=== PATIENT | male | born 1970 | race Caucasian/White ===

== ENCOUNTER 2020-05-12 13:12 | Outpatient (CLI) | payer OTHER, SELFPAY ==
--- NOTE | ~2020-05-12 | US_ITS ---
EXAMINATION: US venous doppler [facility] EXAM DATE: 05/12/2020 13:55 INDICATION: Left calf pain. TECHNIQUE: Multiple grayscale, color flow and Doppler images of the left lower extremity deep venous system were obtained and reviewed. There is no prior study for comparison. FINDINGS: The left common femoral, femoral and profunda veins demonstrate normal color flow, respirat ory variation, augmentation and compressibility. Compressibility, color flow confirmed within the le ft popliteal, posterior tibial, peroneal, and greater saphenous veins. IMPRESSION: 1. No left lower extremity deep venous thrombosis. Reviewed, dictated and finalized at location A.
== END 2020-05-12 13:13 | disposition home or self-care (01) ==
PROVIDERS: PCP Internal Medicine; Visit Provider Internal Medicine
DX: R60.0 Localized edema (principal)
CPT/HCPCS: 93971

== ENCOUNTER 2022-04-10 21:10 | Emergency (ER) | payer OTHER, SELFPAY ==
--- NOTE | ~2022-04-10 | XR_ITS ---
EXAMINATION: XR abdomen/kub 1V DATE: 04/10/2022 23:47 INDICATION: Kidney stone. TECHNIQUE: A supine view of the abdomen on 3 radiographs was obtained. COMPARISON: CT abdomen and pelvis 04/10/2022 FINDINGS: There are no dilated loops of bowel. There are phleboliths in the pelvis. There is no visib le urolithiasis. IMPRESSION: 1. No visible urolithiasis. Reviewed, dictated and finalized at location A. IMPRESSION: 1. No visible urolithiasis.
--- NOTE | ~2022-04-10 | CT_ITS ---
EXAMINATION: CT abdomen pelvis wo con DATE: 04/10/2022 22:25 INDICATION: Right lower quadrant abdominal pain. Right flank pain. TECHNIQUE: Computed tomography (CT) of the abdomen and pelvis was performed without intravenous contr ast. Automated exposure control and iterative reconstruction technique were employed. The dose-length product was 1425.31 mGy-cm. COMPARISON: CT abdomen and pelvis 10/07/2019 FINDINGS: The visualized portions of the lung bases demonstrate mild atelectasis. No pleural effusion . The heart size is normal. No pericardial effusion. The liver, gallbladder, spleen, pancreas, and ad renal glands are normal. There is mild right hydronephrosis and hydroureter. There is a 3 mm stone at right ureterovesicular junction. There is a 7 mm hemorrhagic cyst in left kidney. There is diverticu losis of the colon without evidence of diverticulitis. There are no dilated loops of bowel. The appen edi is normal. There are no pathologically enlarged lymph nodes. There is no free intraperitoneal flu id. 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 There is 4 mm anterolisthesis of L3 on L4. There is severe lumbar spondylosis. IMPRESSION: 1. 3 mm stone at right ureterovesicular junction with mild right hydronephrosis and hydroureter. Reviewed, dictated and finalized at location A.
[2022-04-10 21:12] VITALS: BP 159/110; PULSE 84; RESP 16; TEMP 36.1; O2SAT 98
--- NOTE | 2022-04-10 21:26 | ED.ABDPAIN ---
HPI - Abdominal Pain General Chief Complaint: Abdominal Pain <QUINTON Duff Last Filed: 04/11/22 01:40> Stated Complaint: RLQ pain <QUINTON Duff Last Filed: 04/11/22 01:40> Time Seen by Provider: 04/10/22 21:25 <QUINTON Duff Last Filed: 04/11/22 01:40> Source: patient <QUINTON Duff Last Filed: 04/11/22 01:40> Mode of arrival: ambulatory <QUINTON Duff Last Filed: 04/11/22 01:40> Limitations: no limitations <QUINTON Duff Last Filed: 04/11/22 01:40> History of Present Illness HPI narrative: Patient is a 52-year-old male who presents the ED with report of right lower quadrant abdominal pain. Patient states the pain is present in his right lower quadrant but somewhat radiates around to his right lower back. The pain began 3 hours ago and has been constant and progressively worsening since then. He did take Tylenol 2 hours ago with no relief of pain. He discussed this with his primary care doctor, who was concerned for appendicitis and referred him to the ED. Patient also has a history of kidney stones, but states this pain does not feel similar. Patient states he has felt somewhat queasy with the pain, but denies vomiting. No fevers or chills, no urinary frequency, dysuria, hematuria. No diarrhea or constipation. No rectal bleeding. <QUINTON Duff Last Filed: 04/11/22 01:40> Related Data Home Medications: Home Medications Medication Instructions Recorded Confirmed aspirin 81 mg tablet,delayed 81 mg PO DAILY 09/17/19 02/28/22 release (Adult Low Dose Aspirin) lactobacillus combination no.8 3 3,000 mmu cells PO DAILY 09/17/19 02/28/22 billion cell capsule (Adult Probiotic) loratadine 10 mg tablet (Claritin) 10 mg PO DAILY 09/17/19 02/28/22 mecobalamin (vitamin B12) 1,000 1,000 mcg PO DAILY 09/17/19 02/28/22 mcg disintegrating tablet,sublingual ogtukszp-sxdparrl-vtntv acid 400 1 tablet PO DAILY 09/17/19 02/28/22 mcg-vit K 20 mcg-lycop 300 mcg tablet (Men's Multivitamin) omega-3 fatty acids 1,000 mg 2,000 mg PO BID 09/17/19 02/28/22 capsule (Fish Oil Concentrate) lancets (Microlet Lancet) #50 ea 12/02/19 02/28/22 pen needle, diabetic 31 gauge x #1,200 ea 12/02/19 02/28/2203/07 cholecalciferol (vitamin D3) 25 25 mcg PO DAILY 10/05/20 02/28/22 mcg (1,000 unit) tablet <Cara Andrade PA-C - Last Filed: 04/11/22 01:40> Allergies/Adverse Reactions: Allergies Allergy/AdvReac Type Severity Reaction Status Date / Time No Known Allergies Allergy Mild Verified 04/10/22 21:16 <Cara Andrade PA-C - Last Filed: 04/11/22 01:40> Review of Systems Review of Systems: CONSTITUTIONAL: Denies fever, chills, or sweats. CARDIOVASCULAR: Denies chest pain. RESPIRATORY: Denies dyspnea. GASTROINTESTINAL: Reports right lower quadrant abdominal pain, radiating around to right lower back, nausea. Denies vomiting, constipation, rectal bleeding, or diarrhea. GENITOURINARY: Denies dysuria, urinary frequency, or hematuria. MUSCULOSKELETAL: Reports right lower back pain. Denies joint pain or myalgia. NEUROLOGIC: Denies headache, numbness, or weakness. <Cara Andrade PA-C - Last Filed: 04/11/22 01:40> All systems reviewed & are unremarkable except as noted in HPI and below <Cara Andrade PA-C - Last Filed: 04/11/22 01:40> [facility] Past Medical History Medical History: Medical History (Updated 04/10/22 @ 23:39 by Cara Andrade PA-C) Benign essential hypertension BMI 32.0-32.9,adult BMI 33.0-33.9,adult BMI 36.0-36.9,adult BMI 38.0-38.9,adult Chronic sinusitis Diabetes mellitus type 2, insulin dependent Eczema Encounter for preventive health examination Encounter for routine adult health examination without abnormal findings Encounter for special screening examination for neoplasm of prostate Follow up Gross hematuria Hearing loss Hyperlipidemia Kidney stones On intermodal truck driver drug ther
[2022-04-10 22:00] LABS: Basophils Percent Auto 0.4 % (0.2-1.2); Eosinophils Absolute Auto 0.2 K/mm3 (0-0.3); Eosinophils Percent Auto 1.9 % (0-4.4); Hematocrit 38.8 % (42.0-52.0); Immature Granulocyte Absolute 0.07 K/mm3 (0.00-0.031); Immature Granulocyte Percent A 0.7 % (0-0.5); Lymphocytes Absolute Auto 3.39 K/mm3 (0.9-3.2); Lymphocytes Percent Auto 32.1 % (18.3-44.2); Mean Corpuscular HGB Conc 33.5 g/dl (32-36); Mean Corpuscular Hemoglobin 28.8 pg (26-34); Mean Corpuscular Volume 85.8 fl (80-100); Mean Platelet Volume 10.3 fl (7.4-10.4); Monocytes Absolute Auto 0.8 K/mm3 (0.1-0.6); Monocytes Percent Auto 7.7 % (2.6-8.5); Neutrophils Percent Auto 57.2 % (45.5-73.1); Platelet Count Result 264 k/mm3 (150-375); Red Blood Count 4.52 M/mm3 (4.6-6.20); Red Cell Distribution Width 12.5 % (11.5-14.5); White Blood Count 10.6 K/mm3 (4.5-10.0)
[2022-04-10 22:08] LABS: Alanine Aminotransferase 20 U/L (6-50); Albumin Level 3.9 g/dL (3.5-5.1); Alkaline Phosphatase 74 U/L (38-126); Anion Gap 5 mmol/L (8-16); Aspartate Amino Transferase 27 U/L (17-59); Bilirubin,Total 0.3 mg/dL (0.2-1.3); Blood Urea Nitrogen 44 mg/dL (9-20); Calcium 8.5 mg/dL (8.4-10.2); Carbon Dioxide 26 mmol/L (22-30); Chloride 105 mmol/L (98-107); Estimated CRCL calculation 85 ml/min; Estimated Glomerular Filt Rate 58; Glucose 244 mg/dL (65-110); Lipase 532 U/L (23-300); Potassium 4.1 mmol/L (3.4-5.0); Sodium 136 mmol/L (137-145)
[2022-04-10] MEDS: SODIUM CHLORIDE 0.9% IV 1,000 ML 999 ML IV CONT (22:13)
[2022-04-10] MEDS: ONDANSETRON INJ 4 MG/2 ML VIAL IV PUSH (22:13)
[2022-04-10] MEDS: MORPHINE SULFATE (*CRX) 4 MG/ML INJ 2 MG IV PUSH (22:13)
[2022-04-10 22:26] LABS: Appearance Urine Clear (Clear); Bilirubin Urine Negative (Negative); Blood Urine 3+ (Negative); Color Urine Yellow (Yellow); Glucose Urine UA Negative (Negative); Ketones Urine Trace mg/dL (Negative); Leukocyte Esterase Ur Negative LEU/UL (Negative); Nitrate Urine Negative (Negative); Protein Urine 2+ mg/dL (Negative); Specific Grav Ur 1.025 (1.001-1.035); Urobilinogen Urine 0.2 mg/dL (<2.0)
[2022-04-10 22:31] LABS: RBC Urine >75 /hpf (0-2); WBC Urine 0-3 /hpf
[2022-04-10 22:32] LABS: Add Urine Microscopic? YES
[2022-04-10 23:09] VITALS: BP 152/86; PULSE 72; RESP 16; O2SAT 94
[2022-04-10] MEDS: KETOROLAC 30 MG/ML VIAL (*BKC) IV PUSH (23:54)
[2022-04-11] VITALS: BP 143/80; PULSE 71; RESP 16; O2SAT 95
== END 2022-04-11 00:02 | disposition home or self-care (01) ==
PROVIDERS: Physician Assistant; Emergency Provider Emergency Medicine; PCP Internal Medicine
DX: N13.2 Hydronephrosis with renal and ureteral calculous obstruction (principal); R74.8 Abnormal levels of other serum enzymes; I10 Essential (primary) hypertension; E11.9 Type 2 diabetes mellitus without complications; G47.33 Obstructive sleep apnea (adult) (pediatric); E55.9 Vitamin D deficiency, unspecified; J32.9 Chronic sinusitis, unspecified; Z87.442 Personal history of urinary calculi; Z79.82 Long term (current) use of aspirin; Z79.84 Long term (current) use of oral hypoglycemic drugs; Z79.4 Long term (current) use of insulin; Z79.899 Other long term (current) drug therapy
CPT/HCPCS: 36415; 74018; 74176; 80053; 81001; 83690; 85025; 96361; 96374; 96375; 99284; J1885; J2270; J2405; J7030

== ENCOUNTER 2022-05-16 10:41 | Outpatient (CLI) | payer OTHER, SELFPAY ==
--- NOTE | ~2022-05-16 | CT_ITS ---
EXAMINATION: CT knee LT w con DATE: 05/16/2022 11:18 INDICATION: Left knee pain post fall from ladder TECHNIQUE: High resolution computed tomography (CT) of the left knee was performed with 100 mL Omnipa que-300 intravenous contrast. Additional sagittal and coronal reconstructions were performed. Automat ed exposure control and iterative reconstruction technique were employed. The dose-length product was 85.62 mGy-cm. COMPARISON: None FINDINGS: Mildly comminuted and mildly impacted intra-articular fracture at the posterolateral aspect of the la teral tibial plateau. No greater than 1 mm fracture gap the articular surface with 2 mm depression of the affected portion of the articular surface which is comprised of 2 fragments together involving a lenticular portion of the articular surface measuring 3 cm from anterolateral to posteromedial and m easuring 12 mm in orthogonal anteromedial to posterolateral dimension. Moderate-sized hemarthrosis wi th high attenuation layering blood in the dependent aspect of the suprapatellar pouch. No other fract ures identified. The fusion results in elevation of the patella there is mild subarticular cystlike c hanges at the medial patellar facet suggesting overlying high-grade chondromalacia. Couple small scle rotic bone islands in the proximal tibia. There is mild subcutaneous edema anteriorly about the knee. Small enthesophytes at the patellar and intertibial tuberosity insertions of the quadriceps and pollack llar tendons. Neurovascular bundle at the popliteal fossa appears normal with no surrounding edema. IMPRESSION: 1. Mildly comminuted and mildly impacted intra-articular fracture at the posterolateral aspect of the lateral tibial plateau with up to 2 mm incongruity at the articular cortex. 2. Moderate-sized left knee hemarthrosis. Reviewed, dictated and finalized at location A. IMPRESSION: 1. Mildly comminuted and mildly impacted intra-articular fracture at the slip presser olateral aspect of the lateral tibial plateau with up to 2 mm incongruity at th e articular cortex. 2. Moderate-sized left knee hemarthrosis.
[2022-05-16 11:08] LABS: Estimated Glomerular Filt Rate > 60
== END 2022-05-16 10:42 | disposition home or self-care (01) ==
PROVIDERS: PCP Internal Medicine; Visit Provider Internal Medicine
DX: M25.562 Pain in left knee (principal); M25.062 Hemarthrosis, left knee
CPT/HCPCS: 73701; Q9967

== ENCOUNTER 2024-01-18 01:14 | Day surgery (SDC) | payer OTHER, SELFPAY ==
[2024-01-17 14:42] VITALS: BMI 31.6
[2024-01-18] VITALS (8 sets, daily range): BP systolic 117–156; BP diastolic 74–100; PULSE 78–85; RESP 13–18; TEMP 36.3; O2SAT 93–96
[2024-01-18 09:32] LABS: Basophils Absolute Auto 0.1 K/mm3 (0.0-0.1); Basophils Percent Auto 0.9 % (0.2-1.2); Eosinophils Absolute Auto 0.2 K/mm3 (0-0.3); Eosinophils Percent Auto 2.9 % (0-4.4); Hemoglobin 15.3 g/dL (14.0-18.0); Immature Granulocyte Absolute 0.02 K/mm3 (0.00-0.031); Immature Granulocyte Percent A 0.3 % (0-0.5); Lymphocytes Absolute Auto 2.49 K/mm3 (0.9-3.2); Lymphocytes Percent Auto 33.3 % (18.3-44.2); Mean Corpuscular HGB Conc 31.9 g/dl (32-36); Mean Corpuscular Hemoglobin 28.1 pg (26-34); Mean Corpuscular Volume 88.2 fl (80-100); Mean Platelet Volume 10.4 fl (7.4-10.4); Monocytes Absolute Auto 0.6 K/mm3 (0.1-0.6); Monocytes Percent Auto 8.3 % (2.6-8.5); Neutrophils Absolute Auto 4.1 K/mm3 (1.3-6.7); Neutrophils Percent Auto 54.3 % (45.5-73.1); Platelet Count Result 192 k/mm3 (150-375); Red Blood Count 5.44 M/mm3 (4.6-6.20); Red Cell Distribution Width 13.5 % (11.5-14.5); White Blood Count 7.5 K/mm3 (4.5-10.0)
[2024-01-18 09:41] LABS: Anion Gap 7 mmol/L (4-12); Blood Urea Nitrogen 30 mg/dL (9-20); Calcium 9.3 mg/dL (8.4-10.2); Carbon Dioxide 22 mmol/L (22-30); Chloride 108 mmol/L (98-107); Estimated CRCL calculation 108 ml/min; Estimated Glomerular Filt Rate > 60; Glucose 176 mg/dL (65-110); Potassium 4.5 mmol/L (3.4-5.0); Sodium 137 mmol/L (137-145)
[2024-01-18 09:47] LABS: INR 0.9
--- NOTE | 2024-01-18 11:18 | WPDHPUPDATE1 ---
History and Physical Update Update Date/Time: 01/18/24 11:18 History and Physical has been reviewed, including an updated exam of the patient. There are NO changes in the patient's condition. Risks, benefits, and alternatives have been discussed and questions answered. Patient agrees to proceed with procedure.
--- NOTE | 2024-01-18 11:18 | WPDMODSED ---
Moderate Sedation Note-Pt Data Patient Data Diagnosis: Cardiomyopathy Present Complaint: Cardiomyopathy Procedure to be performed/Plan: Coronary angiography, left heart cath, +/- PCI Allergies Allergy/AdvReac Type Severity Reaction Status Date / Time No Known Allergies Allergy Mild Verified 01/17/24 14:58 Home Medications Medication Instructions Recorded Confirmed Type aspirin 81 mg tablet,delayed 81 mg PO DAILY 09/17/19 01/17/24 History release (Adult Low Dose Aspirin) lactobacillus combination no.8 3 3,000 mmu cells PO DAILY 09/17/19 01/17/24 History billion cell capsule (Adult Probiotic) loratadine 10 mg tablet (Claritin) 10 mg PO DAILY 09/17/19 01/17/24 History xyaoyfjd-dvjtomlv-mrgeu acid 400 1 tablet PO DAILY 09/17/19 01/17/24 History mcg-vit K 20 mcg-lycop 300 mcg tablet (Men's Multivitamin) omega-3 fatty acids 1,000 mg 2,000 mg PO BID 09/17/19 01/17/24 History capsule (Fish Oil Concentrate) lancets (Microlet Lancet) #50 ea 12/02/19 01/05/24 History Contour Next Test Strips (blood #400 ea 09/23/20 01/05/24 Rx sugar diagnostic) cholecalciferol (vitamin D3) 25 25 mcg PO DAILY 10/05/20 01/17/24 History mcg (1,000 unit) tablet fluticasone propionate 50 2 spray intranasal DAILY #3 ea 06/14/22 01/17/24 Rx mcg/actuation nasal spray,suspension CPAP Machine #1 ea 11/22/22 01/05/24 Rx CPap machineand supplies #1 ea 12/01/22 01/05/24 Rx semaglutide 2 mg/dose (8 mg/3 mL) See Rx Instructions .Route 03/13/23 01/17/24 Rx subcutaneous pen injector (Ozempic) .COMPLEX #9 mL Humulin R U-500 (Conc) Kwikpen 500 See Rx Instructions .Route 03/14/23 01/17/24 Rx unit/mL (3 mL) subcutaneous .COMPLEX #42 mL (insulin regular hum U-500 conc) ezetimibe 10 mg tablet (Zetia) 10 mg PO DAILY #90 tabs 08/25/23 01/17/24 Rx pen needle, diabetic 31 gauge x #1,200 ea 08/29/23 01/05/24 Rx 5/16 empagliflozin 25 mg-metformin ER 1 tablet PO DAILY #90 ea 11/06/23 01/17/24 Rx 1,000 mg tablet,extended release 24hr (Synjardy XR) FreeStyle Titus 14 Day Sensor #7 ea 11/24/23 01/05/24 Rx (flash glucose sensor) sacubitril 24 mg-valsartan 26 mg 1 tablet PO BID #180 tabs 01/02/24 01/17/24 Rx tablet (Entresto) atorvastatin 80 mg tablet 80 mg PO DAILY #90 tabs 01/05/24 01/17/24 Rx metoprolol succinate 25 mg 25 mg PO DAILY #90 tabs 01/17/24 01/17/24 Rx tablet,extended release 24 hr vitamin B complex 1 tablet PO DAILY 01/17/24 01/17/24 History Current Medications: Active Medications Sodium Chloride (Normal Saline Iv) 500 mls @ 100 mls/hr IV CONT .Q5H JASON Sedation/Anesthesia: No previous sedation/anesthesia problems (including family history). [facility] Past Medical History Medical History Abnormal finding of blood chemistry Benign essential hypertension Bleeding of eye BMI 32.0-32.9,adult BMI 33.0-33.9,adult BMI 36.0-36.9,adult BMI 38.0-38.9,adult BMI 40.0-44.9, adult Chronic sinusitis Colon cancer screening Diabetes mellitus type 2, insulin dependent Ear pain, right Eczema Encounter for preventive health examination Encounter for routine adult health examination without abnormal findings Eye drainage Follow up Gross hematuria Hand, foot and mouth disease Hearing loss Hyperlipidemia Kidney stones On intermediate manager drug therapy TINO on CPAP Prostate cancer screening Renal cyst Skin tag Strain of left calf muscle Type 2 diabetes mellitus with hyperglycemia, with long-term current use of insulin Vitamin D deficiency Surgical History Surgical History No pertinent past surgical history Family History Family History Grandparent Diabetes mellitus Family history of Alzheimer's disease Mother Family history of type 2 diabetes mellitus Sibling Family history of type 2 diabetes mellitus Social History Social History (Re
--- NOTE | 2024-01-18 11:45 | P.PCNCC_ITS ---
Cardiac Cath Procedure Note Date of procedure:: 01/18/24 Performing physician:: CATHETERIZATION LABORATORY REPORT Procedure Date: 01/18/2024 Community Mental Health Social Worker: Sarah Tamayo M.D., [facility]? Referring Physician: Alan Mehta M.D. ? Anesthesia: Versed and Fentanyl were ordered and given in my presence at 11:17, procedure ended at 11:39. Supervision of nurse monitored moderate sedation with Versed and Fentanyl was provided for 22 minutes. Total of Versed 1mg and Fentanyl 50mcg were administered by the Woodworker Helper RN Blaise Pavon. Pre-op Diagnosis: Cardiomyopathy Post-op Diagnosis: Nonobstructive coronary artery disease Procedure(s): 1. Moderate sedation 2. Ultrasound-guided access of the right radial artery 3. Coronary angiography Access Site: Right radial artery Brief History and Clinical Indications: Patient is a 53 year old male who is referred for [facility] for ischemic evaluation for cardiomyopathy. All risks, benefits and alternatives to left heart catheterization with or without percutaneous coronary intervention was discussed at length with the patient. Risk of complications including but not limited to bleeding, infection, arrhythmia, stroke, worsening kidney function, blood loss, groin hematoma, limb loss, emergency coronary artery bypass grafting, and even were discussed with the patient and all questions were answered. The patient understood and wished to proceed. Time out called, patient name, date of , medical record number, allergies, procedure performed, identify Community Mental Health Social Worker, patient and staff member concurred with accurate data, procedure carried on. Findings: LEFT HEART CATHETERIZATION FINDINGS: 1. Left main: The distal left main coronary artery has mild 30% disease. 2. Left anterior descending: The proximal-mid LAD has mild diffuse disease. Remainder of LAD has luminal irregularities. The first diagonal branch has mild- moderate ostial disease. No significant obstructive angiographic disease. 3. Left circumflex: The proximal-mid LCX has mild diffuse disease. The main marginal branch has luminal irregularities. No significant obstructive angiographic disease. 4. Right coronary artery: The RCA has mild luminal irregularities without any significant obstructive angiographic disease. The RCA is the dominant vessel. Description of Procedure: Informed consent signed and placed in the chart. Patient transferred to recyclable materials sorter room. Prepped and draped in usual sterile fashion. 2% lidocaine injected subcutaneously in right wrist area. 22-gauge venipuncture catheter used to access the right radial artery under ultrasound guidance. 6-FR slender sheath placed in right radial artery. Nitroglycerine and Verapamil were given intraarterial through the sheath. Versacore wire advanced under fluoroscopy 5F Tig 4 diagnostic catheter engaged Left Main Coronary Artery. 5F Tig 4 diagnostic catheter engaged Right Coronary Artery Multiple orthogonal angiogram obtained and reviewed Attempted to cross the aortic valve to obtain LVEDP, however, it was difficult to manipulate 5F Pigtail catheter via radial access and was unable to cross. Hemostasis was achieved by application of TR band. Post Operative Condition: Stable No significant blood loss Disposition: Home Plan: The patient will be monitored in the recovery area. The above findings were discussed with the referring physician. Continue aggressive medical therapy and risk factor modification. ? Sarah Tamayo M.D. Interventional Cardiology
== END 2024-01-18 14:42 | disposition home or self-care (01) ==
PROVIDERS: PCP Internal Medicine; Visit Provider Internal Medicine
PROC: 4A023N7 Measurement of Cardiac Sampling and Pressure, Left Heart, Percutaneous Approach (ICD-10-PCS; CPT 93452; principal; 2024-01-18 10:00)
DX: I25.10 Atherosclerotic heart disease of native coronary artery without angina pectoris (principal); I42.9 Cardiomyopathy, unspecified; I44.7 Left bundle-branch block, unspecified; E11.9 Type 2 diabetes mellitus without complications; I10 Essential (primary) hypertension; E78.5 Hyperlipidemia, unspecified; G47.33 Obstructive sleep apnea (adult) (pediatric); E55.9 Vitamin D deficiency, unspecified; Z79.84 Long term (current) use of oral hypoglycemic drugs; Z79.82 Long term (current) use of aspirin; Z79.85 Long-term (current) use of injectable non-insulin antidiabetic drugs; Z79.4 Long term (current) use of insulin
CPT/HCPCS: 36415; 80048; 85025; 85610; 93458; A9270; C1769; C1887; C1894; J1644; J2250; J2305; J3010; J7040

== ENCOUNTER 2024-06-27 12:30 | Outpatient (RCR) | payer OTHER, SELFPAY ==
[2024-03-01 09:10] VITALS: PULSE 78
== END 2024-06-27 23:59 | disposition home or self-care (01) ==
LOC: ANHCPREHAB 12:30
PROVIDERS: PCP Internal Medicine; Visit Provider Internal Medicine Cardiovascular Disease
DX: I50.89 Other heart failure (principal)
CPT/HCPCS: 93798

== ENCOUNTER 2024-08-08 12:30 | Outpatient (RCR) | payer OTHER, SELFPAY ==
[2024-06-30 00:02] VITALS: PULSE 78
== END 2024-08-08 13:40 | disposition home or self-care (01) ==
LOC: ANHCPREHAB 12:30
PROVIDERS: PCP Internal Medicine; Visit Provider Internal Medicine Cardiovascular Disease
DX: I50.89 Other heart failure (principal)
CPT/HCPCS: 93798